=== PATIENT | female | born 1960 | race Caucasian/White ===

== ENCOUNTER 2016-04-07 16:25 | Emergency (ER) | payer BC ==
[~2016-04-07] VITALS: Ht 154.9 cm; Wt 59.0 kg
[2016-04-07] MEDS ORDERED: ANAPROX DS550 MG PO (18:05)
[2016-04-07] MEDS ORDERED: ROBAXIN500 M1 PO (18:05)
== END 2016-04-07 18:20 | disposition home or self-care (01) ==
LOC: ED 16:25
DX: S16.1XXA Strain of muscle, fascia and tendon at neck level, initial encounter (principal); V89.2XXA Person injured in unspecified motor-vehicle accident, traffic, initial encounter; Y93.89 Activity, other specified; Y92.413 State road as the place of occurrence of the external cause; Y99.9 Unspecified external cause status; Z90.49 Acquired absence of other specified parts of digestive tract

== ENCOUNTER → 2020-02-21 | Outpatient (CLI) | payer BC ==
[~2020-02-21] MED LIST: ANAPROX DS550 MG PO; ROBAXIN500 M1 PO
== END | disposition home or self-care (01) ==
LOC: COVID19 11:44
PROVIDERS: ATTEND Family Medicine
DX: Z20.828 Contact with and (suspected) exposure to other viral communicable diseases (principal)

== ENCOUNTER 2021-11-17 16:52 | Emergency (ER) | payer BC ==
[~2021-11-17] VITALS: Wt 54.4 kg
== END 2021-11-17 18:32 | disposition left against medical advice (07) ==
LOC: ED 16:52
DX: Z53.21 Procedure and treatment not carried out due to patient leaving prior to being seen by health care provider (principal)

== ENCOUNTER → 2022-02-18 | Outpatient (CLI) | payer BC | END | disposition home or self-care (01) | LOC: RAD 00:07 | PROVIDERS: ATTEND Nurse Practitioner Family | DX: Z13.820 Encounter for screening for osteoporosis (principal); M81.0 Age-related osteoporosis without current pathological fracture ==

== ENCOUNTER → 2023-03-21 | Outpatient (CLI) | payer OTHER | END | disposition home or self-care (01) | LOC: CT 01:11 | PROVIDERS: ATTEND Internal Medicine Hematology & Oncology | DX: C43.9 Malignant melanoma of skin, unspecified (principal); K59.00 Constipation, unspecified; K57.30 Diverticulosis of large intestine without perforation or abscess without bleeding; M48.07 Spinal stenosis, lumbosacral region ==

== ENCOUNTER → 2023-03-23 | Outpatient (CLI) | payer OTHER | END | disposition home or self-care (01) | LOC: MRI 00:52 | PROVIDERS: ATTEND Internal Medicine Hematology & Oncology | DX: C43.9 Malignant melanoma of skin, unspecified (principal) ==

== ENCOUNTER 2023-04-14 12:19 | Emergency (ER) | payer OTHER ==
[~2023-04-14] VITALS: Ht 154.9 cm; Wt 56.7 kg
[2023-04-14] MEDS ORDERED: NEXIUM 24HR20 M2 PO (12:58)
[2023-04-14] MEDS ORDERED: PEPCID20 MG PO (12:58)
== END 2023-04-14 13:51 | disposition home or self-care (01) ==
LOC: ED 12:19
DX: S92.352A Displaced fracture of fifth metatarsal bone, left foot, initial encounter for closed fracture (principal); Z90.49 Acquired absence of other specified parts of digestive tract; Z98.890 Other specified postprocedural states; W10.9XXA Fall (on) (from) unspecified stairs and steps, initial encounter; Y93.01 Activity, walking, marching and hiking; Y92.89 Other specified places as the place of occurrence of the external cause; Y99.8 Other external cause status

== ENCOUNTER → 2023-06-02 | Outpatient (CLI) | payer OTHER ==
[~2023-06-02] MED LIST changes: +NEXIUM 24HR20 M2 PO; +PEPCID20 MG PO
== END | disposition home or self-care (01) ==
LOC: MRI 13:00
PROVIDERS: ATTEND Nurse Practitioner
DX: S92.125A Nondisplaced fracture of body of left talus, initial encounter for closed fracture (principal); S96.912A Strain of unspecified muscle and tendon at ankle and foot level, left foot, initial encounter; M67.472 Ganglion, left ankle and foot; M25.472 Effusion, left ankle; M65.872 Other synovitis and tenosynovitis, left ankle and foot; M79.89 Other specified soft tissue disorders; M19.072 Primary osteoarthritis, left ankle and foot; G57.52 Tarsal tunnel syndrome, left lower limb; Z85.850 Personal history of malignant neoplasm of thyroid; Z87.81 Personal history of (healed) traumatic fracture; X58.XXXA Exposure to other specified factors, initial encounter; Y93.89 Activity, other specified; Y92.89 Other specified places as the place of occurrence of the external cause; Y99.8 Other external cause status